=== PATIENT | female | born 1945 | race Caucasian/White ===

== ENCOUNTER 2016-03-14 10:07 | Outpatient (CLI) | payer MEDICARE, OTHER ==
[2016-03-14 11:20] LABS: Hemoglobin A1c 6.2 % (4.0-6.0)
[2016-03-14 11:36] LABS: ALT (SGPT) 26 U/L (0-55); AST (SGOT) 15 U/L (5-34); Albumin 3.6 g/dL (3.4-4.8); Alkaline Phosphatase 89 U/L (40-150); Anion Gap 14 mmol/L (10-20); BUN (Urea Nitrogen) 17 mg/dL (9.8-20.1); Bilirubin, Direct 0.2 mg/dL (0.1-0.3); Bilirubin, Total 0.5 mg/dL (0.2-1.2); Calc. Creatinine Clearance 0 mL/min (70-130); Calcium 9.8 mg/dL (7.8-10.44); Carbon Dioxide 27 mmol/L (23-31); Cardiac Risk 4.3 (Less than 4.5); Chloride 106 mmol/L (98-107); Cholesterol 211 mg/dL (< 200 Desired); Estimated GFR-MDRD 65; Glucose 128 mg/dL (80-115); HDL Cholesterol 49 mg/dL (>60 Neg Risk); LDL Cholesterol, Calculated 125 mg/dL; Potassium 4.2 mmol/L (3.5-5.1); Sodium 143 mmol/L (136-145); Triglycerides 183 mg/dL (Less than 150)
== END 2016-03-14 10:08 ==
LOC: MADLABBHPM 10:07
PROVIDERS: ATTEND Family Medicine
DX: E11.9 Type 2 diabetes mellitus without complications (principal)
CPT/HCPCS: 36415; 80048; 80061; 80076; 83036

== ENCOUNTER 2016-03-15 15:07 | Outpatient (CLI) | payer MEDICARE, OTHER ==
--- NOTE | 2016-03-15 17:48 | RAD ---
CHEST TWO VIEWS: History: Chest pain. Comparison: 12-01-12 FINDINGS: The cardiac silhouette is enlarged. Pulmonary vasculature is upper limits of normal. Mediastinum i s midline. There is no confluent airspace consolidation, pneumothorax or pleural fluid. IMPRESSION: Cardiomegaly. POS: [facility]
== END 2016-03-15 15:08 | disposition home or self-care (01) ==
LOC: MADRAD 15:07
PROVIDERS: ATTEND Family Medicine
DX: R60.9 Edema, unspecified (principal); I51.7 Cardiomegaly
CPT/HCPCS: 71020

== ENCOUNTER 2016-03-28 10:39 | Outpatient (CLI) | payer MEDICARE, OTHER ==
[2016-03-28 11:26] LABS: Anion Gap 17 mmol/L (10-20); BUN (Urea Nitrogen) 13 mg/dL (9.8-20.1); Calc. Creatinine Clearance 0 mL/min (70-130); Calcium 10.1 mg/dL (7.8-10.44); Carbon Dioxide 30 mmol/L (23-31); Chloride 100 mmol/L (98-107); Estimated GFR-MDRD 44; Glucose 183 mg/dL (80-115); Potassium 3.4 mmol/L (3.5-5.1); Sodium 144 mmol/L (136-145)
[2016-03-28 11:31] LABS: Hemoglobin 17.2 g/dL (12.0-16.0); Mean Corpuscular HGB CONC 33.9 g/dL (32.0-36.0); Mean Corpuscular Hemoglobin 31.9 pg (27.0-31.0); Mean Corpuscular Volume 94.2 fl (81.0-99.0); Mean Platelet Volume 8.4 fL (7.4-10.4); Platelet Count 236 thou/uL (130-400); RBC Distribution Width 12.1 % (11.5-14.5); Red Blood Cell (RBC) Count 5.37 mill/uL (4.20-5.40); White Blood Cell (WBC) Count 8.9 thou/uL (4.8-10.8)
[2016-03-28 11:39] LABS: Band 1 % (5-11); Eosinophils 2 % (0-10); Lymphocytes 30 % (21-51); MDiff Complete? YES; Monocytes 4 % (0-10); Neutrophil 63 % (42-75)
== END 2016-03-28 10:40 | disposition home or self-care (01) ==
LOC: MADLABBHPM 10:39
PROVIDERS: ATTEND Family Medicine
DX: E11.9 Type 2 diabetes mellitus without complications (principal); N18.9 Chronic kidney disease, unspecified; F32.9 Major depressive disorder, single episode, unspecified
CPT/HCPCS: 36415; 80048; 84443; 85025

== ENCOUNTER 2016-06-11 10:48 | Outpatient (CLI) | payer MEDICARE, OTHER ==
[2016-06-11 11:06] LABS: #Basophils 0.1 thou/uL (0.0-0.2); #Eosinphils 0.3 thou/uL (0.0-0.7); #Lymphocytes 2.5 thou/uL (1.20-3.40); #Monocytes 0.6 thou/uL (0.11-0.59); #Neutrophils 5.2 thou/uL (1.40-6.50); %Basophils 0.6 % (0.0-1.0); %Eosinophils 3.1 % (0.0-10.0); %Lymphocytes 28.9 % (21.0-51.0); %Monocytes 7.2 % (0.0-10.0); %Neutrophils 60.1 % (42.0-75.0); Hemoglobin 16.9 g/dL (12.0-16.0); Mean Corpuscular Hemoglobin 30.9 pg (27.0-31.0); Mean Corpuscular Volume 93.8 fl (81.0-99.0); Platelet Count 217 thou/uL (130-400); RBC Distribution Width 12.4 % (11.5-14.5); Red Blood Cell (RBC) Count 5.46 mill/uL (4.20-5.40); White Blood Cell (WBC) Count 8.7 thou/uL (4.8-10.8)
[2016-06-11 11:19] LABS: Hemoglobin A1c 6.9 % (4.0-6.0)
[2016-06-11 11:39] LABS: ALT (SGPT) 35 U/L (0-55); AST (SGOT) 22 U/L (5-34); Alkaline Phosphatase 98 U/L (40-150); Anion Gap 16 mmol/L (10-20); BUN (Urea Nitrogen) 14 mg/dL (9.8-20.1); Bilirubin, Direct 0.2 mg/dL (0.1-0.3); Bilirubin, Total 0.6 mg/dL (0.2-1.2); Calc. Creatinine Clearance 0 mL/min (70-130); Calcium 9.9 mg/dL (7.8-10.44); Carbon Dioxide 28 mmol/L (23-31); Cardiac Risk 4.1 (Less than 4.5); Chloride 104 mmol/L (98-107); Cholesterol 206 mg/dL (< 200 Desired); Estimated GFR-MDRD 50; Glucose 169 mg/dL (80-115); HDL Cholesterol 50 mg/dL (>60 Neg Risk); LDL Cholesterol, Calculated 107 mg/dL; Potassium 4.2 mmol/L (3.5-5.1); Protein, Total 6.7 g/dL (5.8-8.1); Sodium 144 mmol/L (136-145); Triglycerides 245 mg/dL (Less than 150)
[2016-06-11 17:07] LABS: Creatinine, Urine 383.93 mg/dL (47-110); Microalbumin Urine 37.6 mg/dL (0.5-50.0); Microalbumin/Creat Ratio 97.9 mg/g (Less than 30)
== END 2016-06-11 10:49 | disposition home or self-care (01) ==
LOC: MADLABBHPM 10:48
PROVIDERS: ATTEND Family Medicine
DX: E11.9 Type 2 diabetes mellitus without complications (principal); F32.9 Major depressive disorder, single episode, unspecified
CPT/HCPCS: 36415; 80048; 80061; 80076; 82043; 83036; 84443; 85025

== ENCOUNTER 2016-06-15 15:52 | Outpatient (CLI) | payer MEDICARE, OTHER ==
[2016-06-15 16:22] LABS: Clarity Cloudy (Clear); Leukocyte Large (Negative); Nitrite Positive (Negative)
[2016-06-15 16:23] LABS: Bacteria/HPF 2+ HPF (None Seen); Bilirubin Negative (Negative); Blood, Urine Moderate (Negative); Glucose, Urine (Dipstick) Negative (Negative); Other Microscopic Description C&S SET UP; Protein, Urine (Dipstick) 100 mg/dL (Neg-Trace); Squamous Epithelial 0-3 HPF (0-3); Urobilinogen 0.2 mg/dL (0.2-1.0)
== END 2016-06-15 15:53 | disposition home or self-care (01) ==
LOC: MADLABBHPM 15:52
PROVIDERS: ATTEND Family Medicine
DX: N39.0 Urinary tract infection, site not specified (principal)
CPT/HCPCS: 81001; 87086

== ENCOUNTER 2017-04-16 09:06 | Outpatient (CLI) | payer MEDICARE, BC ==
[2017-04-16 10:11] LABS: #Eosinphils 0.1 thou/uL (0.0-0.7); #Lymphocytes 1.9 thou/uL (1.20-3.40); #Monocytes 0.6 thou/uL (0.11-0.59); #Neutrophils 7.1 thou/uL (1.40-6.50); %Basophils 0.5 % (0.0-1.0); %Eosinophils 1.5 % (0.0-10.0); %Lymphocytes 19.6 % (21.0-51.0); %Monocytes 6.3 % (0.0-10.0); %Neutrophils 72.1 % (42.0-75.0); Hemoglobin 18.1 g/dL (12.0-16.0); Mean Corpuscular HGB CONC 32.1 g/dL (32.0-36.0); Mean Corpuscular Hemoglobin 31.1 pg (27.0-31.0); Mean Corpuscular Volume 96.8 fl (81.0-99.0); Mean Platelet Volume 7.8 fL (7.4-10.4); Platelet Count 245 thou/uL (130-400); RBC Distribution Width 12.6 % (11.5-14.5); Red Blood Cell (RBC) Count 5.83 mill/uL (4.20-5.40); White Blood Cell (WBC) Count 9.8 thou/uL (4.8-10.8)
[2017-04-16 10:20] LABS: ALT (SGPT) 29 U/L (8-55); AST (SGOT) 18 U/L (5-34); Alkaline Phosphatase 83 U/L (40-150); Anion Gap 18 mmol/L (10-20); BUN (Urea Nitrogen) 11 mg/dL (9.8-20.1); Calc. Creatinine Clearance 0 mL/min (70-130); Calcium 10.1 mg/dL (7.8-10.44); Carbon Dioxide 24 mmol/L (23-31); Cardiac Risk 2.7 (Less than 4.5); Chloride 100 mmol/L (98-107); Cholesterol 101 mg/dl (< 200 Desired); Estimated GFR-MDRD 37; Globulin 3.1 g/dL (2.4-3.5); Glucose 164 mg/dL (83-110); HDL Cholesterol 38 mg/dL (>60 Neg Risk); LDL Cholesterol, Calculated 39 mg/dL; Potassium 3.9 mmol/L (3.5-5.1); Protein, Total 7.1 g/dL (6.0-8.3); Sodium 138 mmol/L (136-145); Triglycerides 118 mg/dL (Less than 150)
--- NOTE | 2017-04-16 11:09 | RAD ---
CHEST TWO VIEWS: History: Shortness of breath. Comparison: 03-15-16 FINDINGS: Layering left effusion versus marked increased in the mediastinal sac. No pneumothorax. No definite f ocal airspace consolidation. Mild spondylosis of the thoracic spine. Heart size is enlarged. IMPRESSION: 1. Cardiomegaly. 2. Likely increased mediastinal fat versus less likely a layering left effusion. 3. Lung hypoinflation. POS: [facility]
[2017-04-16 16:51] LABS: Hemoglobin A1c 6.8 % (4.0-6.0)
== END 2017-04-16 09:07 | disposition home or self-care (01) ==
LOC: MADLAB 09:06
PROVIDERS: ATTEND Family Medicine
DX: R06.02 Shortness of breath (principal); I12.9 Hypertensive chronic kidney disease with stage 1 through stage 4 chronic kidney disease, or unspecified chronic kidney disease; E11.22 Type 2 diabetes mellitus with diabetic chronic kidney disease; N18.9 Chronic kidney disease, unspecified; E78.5 Hyperlipidemia, unspecified; I51.7 Cardiomegaly; J98.4 Other disorders of lung
CPT/HCPCS: 36415; 71046; 80053; 80061; 83036; 84443; 85025; 93005; 93010